=== PATIENT | male | born 1940 | race Caucasian/White ===

== ENCOUNTER 2016-09-27 11:18 | Emergency (ER) | payer MEDICARE, BC ==
[2014-01-30 09:40] VITALS: BMI 25.5
[~2016-09-27 11:18] MED LIST: ALEVE220 MG PO; BAYER CHEWABLE81 MG PO; FISH OIL 1,0001 CA1 PO; FORMULA E400 UNIT PO; HYDROCHLOROTHIA25 MG PO; MULTIPLE VITAMI1 TA1 PO; NORVASC10 MG PO; PACERONE200 MG PO; PLAVIX75 MG PO; PRAVACHOL40 MG PO; TOPROL XL25 MG PO
[2016-09-27 11:44] LABS: BASOPHILS 0.3 % (0-2); EOSINOPHILS 1.2 % (0-7); HEMATOCRIT 40.8 % (42.0-54.0); LYMPHOCYTES 36.5 % (15-50); MCH 30.3 pg (26.0-34.0); MCHC 34.3 g/dL (31.0-37.0); MCV 88.3 fL (80.0-100.0); MEAN PLATELET VOLUME 10.1 fL (7.4-10.4); MONOCYTES 14.3 % (2-11); NEUTROPHILS 47.7 % (40-80); PLATELET COUNT 151 10x3/uL (130-400); RBC 4.62 10x6/uL (4.20-6.10); RDW 13.3 % (11.5-14.5); WBC 5.8 10x3/uL (4.8-10.8)
[2016-09-27 11:57] LABS: ALBUMIN 4.2 g/dL (3.4-5.0); ALKALINE PHOSPHATASE 69 U/L (46-116); ALT (SGPT) 40 U/L (10-68); BILIRUBIN - TOTAL 0.62 mg/dL (0.2-1.3); CALC OSMOLALITY 274 mosm/kg (275-300); CALCIUM 8.8 mg/dL (8.5-10.1); CARBON DIOXIDE 30.5 mmol/L (21.0-32.0); CHLORIDE - SERUM 100 mmol/L (98-107); CREATININE - SERUM 1.2 mg/dL (0.6-1.3); GLUCOSE 125 mg/dL (74-106); POTASSIUM - SERUM 3.7 mmol/L (3.5-5.1); SODIUM 136 mmol/L (136-145); UREA NITROGEN 17 mg/dL (7-18); eGFR NON AFRICAN AMERICAN 62 mL/min (90-120)
[2016-09-27 12:16] LABS: CREATINE KINASE 220 UL (21-232)
[2016-09-27 12:18] LABS: TROPONIN-I < 0.017 ng/mL (0.000-0.060)
[2016-09-27 12:57] LABS: APPEARANCE CLEAR (CLEAR); BILIRUBIN NEGATIVE (NEGATIVE); COLOR YELLOW (YELLOW); GLUCOSE NEGATIVE (NEGATIVE); KETONE NEGATIVE (NEGATIVE); LEUKOCYTE ESTERASE NEGATIVE (NEGATIVE); NITRITE NEGATIVE (NEGATIVE); PROTEIN NEGATIVE (NEGATIVE); UROBILINOGEN NORMAL (NORMAL)
== END 2016-09-27 16:45 | disposition home or self-care (01) ==
LOC: D.ER 11:18
PROVIDERS: Emergency Medicine
DX: R55 Syncope and collapse (principal)

== ENCOUNTER 2017-03-03 13:43 | Emergency (ER) | payer MEDICARE, BC ==
[2014-01-30 09:40] VITALS: BMI 25.5
== END 2017-03-03 17:05 | disposition home or self-care (01) ==
LOC: D.ER 13:43
DX: S69.91XA Unspecified injury of right wrist, hand and finger(s), initial encounter (principal); X58.XXXA Exposure to other specified factors, initial encounter; Y93.9 Activity, unspecified; M79.641 Pain in right hand

== ENCOUNTER 2020-08-02 16:07 | Inpatient (IN) | payer MEDICARE, BC ==
[~2020-08-02] VITALS: Ht 182.9 cm; Wt 81.6 kg
[2020-08-02] MEDS ORDERED: ZOFRAN ODT4 MG/UDTAB PO (16:17)
[2020-08-02 16:22] VITALS: BP 115/67
[2020-08-02 16:46] LABS: BASOPHILS 0.3 % (0-2); EOSINOPHILS 0 % (0-7); HEMATOCRIT 36.2 % (42.0-54.0); HEMOGLOBIN 12.1 g/dL (13.5-17.5); LYMPHOCYTES 2.7 % (15-50); MCH 28.7 pg (26.0-34.0); MCHC 33.6 g/dL (31.0-37.0); MCV 85.5 fL (80.0-100.0); MONOCYTES 5.5 % (2-11); NEUTROPHILS 91.5 % (40-80); RBC 4.23 10x6/uL (4.20-6.10); WBC 11.2 10x3/uL (4.8-10.8)
[2020-08-02 16:52] LABS: ANION GAP 12.6 mmol/L (8-16); CALCIUM 8.1 mg/dL (8.5-10.1); CARBON DIOXIDE 23.8 mmol/L (21.0-32.0); CREATININE - SERUM 1.2 mg/dL (0.6-1.3); POTASSIUM - SERUM 3.4 mmol/L (3.5-5.1)
[2020-08-02 16:59] LABS: BILIRUBIN - TOTAL 0.58 mg/dL (0.2-1.3); PROTEIN - SERUM 7.5 g/dL (6.4-8.2)
[2020-08-02 17:13] LABS: PLATELET COUNT 193 10x3/uL (130-400)
[2020-08-02 17:25] VITALS: BP 123/66
[2020-08-02 17:42] LABS: BACTERIA FEW HPF (<MOD); BILIRUBIN NEGATIVE (NEGATIVE); KETONE NEGATIVE mg/dL (< 1+); NITRITE NEGATIVE (NEGATIVE); PH 6.5 (5.0-8.0); UROBILINOGEN NORMAL mg/dL (< 2); WHITE CELLS - URINE 9 HPF (0-1)
--- NOTE | 2020-08-02 19:00 | NUR ---
Report given to Ada ALEMAN. Family is at bedside with patient.
[2020-08-02 23:04] VITALS: BMI 24.4
[2020-08-02 23:53] VITALS: BP 151/71
[2020-08-03] MEDS ORDERED: TRIAMTERENE-HC1 EAC6 PO (00:12)
[2020-08-03] MEDS ORDERED: CYANOCOBAL1000 MCG/4 SC (00:15)
[2020-08-03 03:45] VITALS: BP 139/72
[2020-08-03 05:49] LABS: BASOPHILS 0.2 % (0-2); EOSINOPHILS 0 % (0-7); HEMATOCRIT 34.8 % (42.0-54.0); HEMOGLOBIN 11.7 g/dL (13.5-17.5); LYMPHOCYTES 3.9 % (15-50); MCHC 33.5 g/dL (31.0-37.0); MCV 86.4 fL (80.0-100.0); MEAN PLATELET VOLUME 7.6 fL (7.4-10.4); MONOCYTES 7.2 % (2-11); NEUTROPHILS 88.7 % (40-80); PLATELET COUNT 173 10x3/uL (130-400); RBC 4.03 10x6/uL (4.20-6.10); RDW 14.6 % (11.5-14.5); WBC 8.4 10x3/uL (4.8-10.8)
[2020-08-03 06:06] LABS: INR 1.22 (0.85-1.17); PROTIME 14.3 SECONDS (11.6-15.0)
[2020-08-03 06:07] LABS: APTT 30.3 SECONDS (22.8-39.4)
[2020-08-03 06:18] LABS: ALBUMIN 2.8 g/dL (3.4-5.0); ALKALINE PHOSPHATASE 50 U/L (30-120); ALT (SGPT) 77 U/L (10-68); BILIRUBIN - TOTAL 0.36 mg/dL (0.2-1.3); CALC OSMOLALITY 260 mosm/kg (275-300); CARBON DIOXIDE 23.7 mmol/L (21.0-32.0); CHLORIDE - SERUM 94 mmol/L (98-107); GLUCOSE 134 mg/dL (74-106); MAGNESIUM - SERUM 1.8 mg/dL (1.8-2.4); PHOSPHOROUS 2.3 mg/dL (2.5-4.9); PROTEIN - SERUM 7.1 g/dL (6.4-8.2); SODIUM 128 mmol/L (136-145); UREA NITROGEN 19 mg/dL (7-18); eGFR NON AFRICAN AMERICAN 76 mL/min (90-120)
[2020-08-03 07:20] LABS: POTASSIUM - SERUM 2.9 mmol/L (3.5-5.1)
--- NOTE | 2020-08-03 07:52 | NUR ---
RECIEVED BEDSIDE REPORT. BED LOW POSITION, CALL LIGHT IN REACH. DENIES NEEDS AT THIS TIME. FAMILY AT BEDSIDE. FREE FROM SIGNS OF DISTRESS. WILL CONTINUE TO MONITOR.
[2020-08-03 08:37] VITALS: BP 141/73
[2020-08-03 12:46] VITALS: BP 141/78
[2020-08-03 13:20] VITALS: Ht 182.9 cm; Wt 81.6 kg
[2020-08-03 16:49] VITALS: BP 146/69
--- NOTE | 2020-08-03 19:46 | NUR ---
PT SITTING UP IN BED WITHOUT DISTRESS, AOX4. FAMILY AT BEDSIDE. DENIES NEEDS AT THIS TIME. CL IN REACH
[2020-08-03 20:59] VITALS: BP 137/76
[2020-08-03 23:55] VITALS: BP 141/58
[2020-08-04 03:51] VITALS: BP 104/59
[2020-08-04 06:30] LABS: ALBUMIN 2.4 g/dL (3.4-5.0); ALKALINE PHOSPHATASE 35 U/L (30-120); ALT (SGPT) 72 U/L (10-68); BILIRUBIN - TOTAL 0.31 mg/dL (0.2-1.3); CALC OSMOLALITY 265 mosm/kg (275-300); CALCIUM 7.6 mg/dL (8.5-10.1); CARBON DIOXIDE 24.5 mmol/L (21.0-32.0); CHLORIDE - SERUM 101 mmol/L (98-107); CREATININE - SERUM 0.8 mg/dL (0.6-1.3); GLUCOSE 89 mg/dL (74-106); MAGNESIUM - SERUM 2.2 mg/dL (1.8-2.4); PHOSPHOROUS 1.9 mg/dL (2.5-4.9); PROTEIN - SERUM 6.2 g/dL (6.4-8.2); SODIUM 133 mmol/L (136-145); UREA NITROGEN 15 mg/dL (7-18); eGFR NON AFRICAN AMERICAN > 90 mL/min (90-120)
[2020-08-04 06:35] LABS: BASOPHILS 0.3 % (0-2); EOSINOPHILS 0 % (0-7); HEMATOCRIT 32.9 % (42.0-54.0); HEMOGLOBIN 11.3 g/dL (13.5-17.5); LYMPHOCYTES 9.2 % (15-50); MCH 29.3 pg (26.0-34.0); MCHC 34.2 g/dL (31.0-37.0); MCV 85.6 fL (80.0-100.0); MEAN PLATELET VOLUME 7.7 fL (7.4-10.4); MONOCYTES 13.3 % (2-11); NEUTROPHILS 77.2 % (40-80); PLATELET COUNT 155 10x3/uL (130-400); RBC 3.85 10x6/uL (4.20-6.10); RDW 14.5 % (11.5-14.5)
[2020-08-04 06:51] LABS: WBC 5.2 10x3/uL (4.8-10.8)
--- NOTE | 2020-08-04 07:48 | NUR ---
RECIEVED BEDSIDE REPORT. BED LOW POSITION, CALL LIGHT IN REACH. FREE FROM SIGNS OF DISTRESS. DENIES NEEDS. WILL CONTINUE TO MONITOR.
[2020-08-04 09:01] VITALS: BP 137/75
[2020-08-04 17:15] VITALS: BP 155/80
[2020-08-04 20:00] VITALS: BP 130/71
--- NOTE | 2020-08-04 20:00 | NUR ---
PT SITTING UP IN BED WITHOUT DISTRESS, AOX4. GRANDSON AT BEDSIDE. DENIES PAIN OR NEEDS AT THIS TIME. CL IN REACH
[2020-08-05] VITALS: BP 144/77
[2020-08-05 04:00] VITALS: BP 146/78
--- NOTE | 2020-08-05 05:00 | NUR ---
PT STATES HE IS ITCHY AFTER LAST NORCO, REQUESTING SOMETHING FOR ITCHING. LAB CALLED BLOOD CULTURE RESULTS GRAM POSITIVE COCCI. PAGED CHRIS YAO APN.
[2020-08-05 05:24] LABS: BASOPHILS 0.4 % (0-2); EOSINOPHILS 0.4 % (0-7); HEMATOCRIT 33.7 % (42.0-54.0); HEMOGLOBIN 11.5 g/dL (13.5-17.5); MCV 85.3 fL (80.0-100.0); MEAN PLATELET VOLUME 7.4 fL (7.4-10.4); MONOCYTES 15.2 % (2-11); PLATELET COUNT 174 10x3/uL (130-400); RBC 3.96 10x6/uL (4.20-6.10); RDW 14.5 % (11.5-14.5); WBC 4.9 10x3/uL (4.8-10.8)
[2020-08-05 06:33] LABS: ALBUMIN 2.5 g/dL (3.4-5.0); ALKALINE PHOSPHATASE 42 U/L (30-120); ALT (SGPT) 83 U/L (10-68); BILIRUBIN - TOTAL 0.34 mg/dL (0.2-1.3); CALC OSMOLALITY 268 mosm/kg (275-300); CALCIUM 7.4 mg/dL (8.5-10.1); CARBON DIOXIDE 22.5 mmol/L (21.0-32.0); CHLORIDE - SERUM 103 mmol/L (98-107); CREATININE - SERUM 0.9 mg/dL (0.6-1.3); GLUCOSE 92 mg/dL (74-106); MAGNESIUM - SERUM 1.9 mg/dL (1.8-2.4); PHOSPHOROUS 1.8 mg/dL (2.5-4.9); POTASSIUM - SERUM 3.2 mmol/L (3.5-5.1); PROTEIN - SERUM 5.9 g/dL (6.4-8.2); SODIUM 135 mmol/L (136-145); eGFR NON AFRICAN AMERICAN 86 mL/min (90-120)
[2020-08-05 06:42] LABS: UREA NITROGEN 11 mg/dL (7-18)
--- NOTE | 2020-08-05 07:47 | NUR ---
ALERT AND ORIENTED. ASSESSMENT COMPLETE. SON AT BEDSIDE. BED LOW. CALL OSMAN AND PERSONAL ITEMS IN REACH. WILL CONTINUE TO MONITOR.
[2020-08-05 09:04] VITALS: BP 156/86
--- NOTE | 2020-08-05 10:00 | NUR ---
SITTING UP ON SIDE OF BED. DENIES NEEDS. WILL CONTINUE TO MONITOR.
--- NOTE | 2020-08-05 12:31 | NUR ---
SITTING UP ON SIDE OF BED EATING LUNCH. DENIES NEEDS. WILL CONTINUE TO MONITOR.
[2020-08-05 12:45] VITALS: BP 161/92
--- NOTE | 2020-08-05 13:39 | NUR ---
TELE DC PER PATIENT REQUEST. ORDER GIVEN TO DC TELE BY YOHANNES PLAZA.
[2020-08-05 20:00] VITALS: BP 152/84
--- NOTE | 2020-08-05 20:00 | NUR ---
PT SITTING UP ON SIDE OF BED AOX4. TALKING WITH SON AT BEDSIDE. DENIES PAIN OR NEEDS AT THIS TIME. CL IN REACH
--- NOTE | 2020-08-06 08:00 | NUR ---
ALERT AND ORIENTED. ASSESSMENT COMPLETE. DENIES NEEDS. WILL CONTINUE TO MONITOR.
[2020-08-06 08:58] VITALS: BP 152/82
[2020-08-06 09:18] LABS: BASOPHILS 0.3 % (0-2); EOSINOPHILS 1.5 % (0-7); HEMATOCRIT 34.9 % (42.0-54.0); HEMOGLOBIN 11.9 g/dL (13.5-17.5); LYMPHOCYTES 9.8 % (15-50); MCH 28.7 pg (26.0-34.0); MCHC 34.1 g/dL (31.0-37.0); MEAN PLATELET VOLUME 7.7 fL (7.4-10.4); MONOCYTES 15.4 % (2-11); PLATELET COUNT 198 10x3/uL (130-400); RBC 4.16 10x6/uL (4.20-6.10); RDW 15.2 % (11.5-14.5); WBC 4.8 10x3/uL (4.8-10.8)
[2020-08-06 09:25] LABS: ALBUMIN 2.5 g/dL (3.4-5.0); ALKALINE PHOSPHATASE 47 U/L (30-120); ALT (SGPT) 71 U/L (10-68); BILIRUBIN - TOTAL 0.38 mg/dL (0.2-1.3); CALCIUM 7.6 mg/dL (8.5-10.1); CARBON DIOXIDE 24.5 mmol/L (21.0-32.0); CHLORIDE - SERUM 103 mmol/L (98-107); CREATININE - SERUM 0.7 mg/dL (0.6-1.3); GLUCOSE 99 mg/dL (74-106); MAGNESIUM - SERUM 1.9 mg/dL (1.8-2.4); PHOSPHOROUS 1.8 mg/dL (2.5-4.9); POTASSIUM - SERUM 3.1 mmol/L (3.5-5.1); PROTEIN - SERUM 6.4 g/dL (6.4-8.2); SODIUM 135 mmol/L (136-145); eGFR NON AFRICAN AMERICAN > 90 mL/min (90-120)
[2020-08-06 09:26] LABS: CALC OSMOLALITY 267 mosm/kg (275-300); UREA NITROGEN 8 mg/dL (7-18)
--- NOTE | 2020-08-06 09:39 | NUR ---
PER YOHANNES PLAZA, ADD PHOS TO POTASSIUM REDRAWS AFTER TREATING PER PROTOCOL.
--- NOTE | 2020-08-06 09:39 | NUR ---
SPOKE WITH PHARMACY FOR 15MM BAG PHOS.
--- NOTE | 2020-08-06 12:46 | NUR ---
REQUESTING DIFFERENT LUNCH. NEW TRAY ORDERED. DENIES FURTHER NEEDS. WILL CONTINUE TO MONITOR.
[2020-08-06 13:38] VITALS: BP 127/82
--- NOTE | 2020-08-06 14:03 | NUR ---
RESTING IN BED. DENIES NEEDS. SON AT BEDSIDE. WILL CONTINUE TO MONITOR.
--- NOTE | 2020-08-06 16:56 | NUR ---
RESTING IN BED. SON AT BEDSIDE. CALL OSMAN IN REACH.
[2020-08-06 17:47] VITALS: BP 153/78
--- NOTE | 2020-08-06 18:34 | MORECARE ---
CASE MANAGEMENT DISCHARGE SUMMARY PATIENT: ALEIDA BRADLEY UNIT: [id number] ADM DATE: 08/03/20 AGE: 80 : 38 SEX: M ROOM/BED: D.2203 AUTHOR: NADIRA,DOC PHYSICIAN: REFERRING PHYSICIAN: ALEX ROUSE MD DATE OF SERVICE: 08/06/20 Case Management Discharge Planning Summary COMMENTS ENTERED DATE: 08/06/20 18:27 CT COMMENT TYPE: Discharge Planning REVIEWER: Gigi Wood CM met with patient to complete DC plan and to evaluate needs. Patient lives independently alone with strong support. Patient stated that his person to notify is his granddaughter, Ophelia Maher, . Patient stated that his home is safe and has electricity and running water. Patient stated that the home has a ramp to enter and he is able to manage entry into his home and within his home without difficulty. Patient stated that he has no problems paying for medications and he fills his medications at [facility] in [place], [place]. Patient stated that his primary care physician is Dr. Santiago. At discharge, the patient plans to return home and feels this is a safe discharge. CM discussed availability of home health, rehab services, and medical equipment. Patient declined SNF, IPR, and DME but would like home health services through [facility]. Patient stated that [place] arranged home intensive care anaesthetist services through [facility] and would like to do the same. RAJAT signed and placed in chart. Patient voiced no other needs at this time and is satisfied with DC plan. DC IMM delivered, explained, signed by the patient, and placed in chart. Signed form also left with the patient. CM will continue to follow and will assist as needed with dc plans/needs. DCP REVIEW SUMMARY ANTICIPATED D/C DATE: EXPECTED LOS : CASE STATUS: DCP Initiated INITIAL REVIEW: 08/02/2020 INITIAL REVIEWER: Gigi Wood FINAL DISCHARGE DISPOSITION: : FINAL REVIEWER: FINAL REVIEW DATE: DCP Focus Questions & Answers DCP Evaluation QUESTION: ANSWER Patient and/or caregiver agree upon recommended discharge plan? : Yes Family / Caregiver's ability to cope with chronic illness: : a. Adequate (ability to meet patient's medical needs, ensures patient attends medical appts.) Patient's current cognitive status: : *Oriented to person, place, situation, time and present Patient's ability to cope with chronic illness : d. No chronic illness Patient gives permission to discuss discharge plans with: (name, relationship and number) : Ophelia braden, Does the patient have the ability to pay for or attain post discharge needs / services? : Yes Functional screen assessment: : Basic needs can adequately be met by self Family / Caregiver's ability to cope with chronic illness: : a. Adequate (ability to meet patient's medical needs, ensures patient attends medical appts.) Physical Status: : Independent with ADL's Equipment needed for post hospitalization: : None Is there a likelihood that the patient will require additional services to return to the preadmission environment? : Yes Living Arrangements: : Home Alone with Support Patient with capacity for self-care or can be cared for in same environment as prior to hospitalization? : Yes Baseline cognitive status: : *Oriented to person, place, situation, time and present Physical environment modification needed / anticipated for discharge: : No Medication Management: : Patient states can read and understand medication labels Medication Management: : Patient states can afford medications Pharmacy name(s): : [facility] in [place], [place]. Does Patient have transportation to get home and to follow-up medical appointments when discharged from the hospital? : Yes Would patient like to participate in any Care Coordination programs (if applicable): : Not applicable Does the patient have electricity at home? : Yes Does the patient have running water in their house? : Yes Equipment in use: : None Mental health screen: : No mental health history DCP Re-evaluation QUESTION: ANSWER Would patient like to participate in any Care Coordination programs (if applicable): : Not applicable PATIENT: ALEIDA BRADLEY ENCOUNTER: [id number] MEDICAL RECORD#: [id number] ADMISSION DATE: 08/03/2020 DISCHARGE DATE: ATTENDING MD: EDMUNDO: AGE: 80 MARITAL STATUS: M DC PLAN ID: [id number] FACILITY: [facility] PRINTED ON: 08/06/20 18:34 CT All edits/amendments must be made on the electronic document DICTATION DATE: 08/06/201833 DRYING OVEN ATTENDANT: LORENZO 08/06/201833 RPT#: [id number] DC DATE: STATUS: ADM IN [facility] [address] [place] [address] END OF REPORT
--- NOTE | 2020-08-06 18:45 | NUR ---
PATIENT SLEEPING. SON AT BEDSIDE. CALL OSMAN IN REACH.
--- NOTE | 2020-08-06 19:00 | NUR ---
BEDSIDE REPORT RECEIVED AND CARE OF PT ASSUMED. PT LYING IN LOW WARREN'S POSITION VISITING WITH SON. IV TO RIGHT WRIST PATENT WITH NS W/ 2O KCL INFUSING AT 125 ML/HR. WILL MONITOR FOR NEEDS.
--- NOTE | 2020-08-06 20:46 | NUR ---
HS MEDICATIONS GIVEN. WILL CONTINUE TO MONITOR FOR NEEDS. SON IS AT BEDSIDE.
--- NOTE | 2020-08-07 02:39 | NUR ---
GAVE TYLEOL 500 MG PO PER PRN ORDER, PER REQUEST FOR ACHING HEADACHE AT LEVEL 5/10. WILL MONITOR FOR EFFECTIVENESS.
[2020-08-07 05:42] LABS: BASOPHILS 0.4 % (0-2); EOSINOPHILS 2.1 % (0-7); HEMATOCRIT 32.6 % (42.0-54.0); HEMOGLOBIN 11.1 g/dL (13.5-17.5); LYMPHOCYTES 11.9 % (15-50); MCH 28.5 pg (26.0-34.0); MCV 83.9 fL (80.0-100.0); MEAN PLATELET VOLUME 7.4 fL (7.4-10.4); MONOCYTES 16.1 % (2-11); NEUTROPHILS 69.5 % (40-80); PLATELET COUNT 198 10x3/uL (130-400); RBC 3.89 10x6/uL (4.20-6.10); WBC 3.9 10x3/uL (4.8-10.8)
[2020-08-07 05:50] LABS: ALBUMIN 2.3 g/dL (3.4-5.0); ALKALINE PHOSPHATASE 52 U/L (30-120); ALT (SGPT) 67 U/L (10-68); BILIRUBIN - TOTAL 0.39 mg/dL (0.2-1.3); CALC OSMOLALITY 268 mosm/kg (275-300); CALCIUM 7.5 mg/dL (8.5-10.1); CARBON DIOXIDE 23.3 mmol/L (21.0-32.0); CHLORIDE - SERUM 103 mmol/L (98-107); CREATININE - SERUM 0.6 mg/dL (0.6-1.3); GLUCOSE 108 mg/dL (74-106); MAGNESIUM - SERUM 1.7 mg/dL (1.8-2.4); PHOSPHOROUS 2.4 mg/dL (2.5-4.9); PROTEIN - SERUM 5.9 g/dL (6.4-8.2); SODIUM 135 mmol/L (136-145); UREA NITROGEN 7 mg/dL (7-18); eGFR NON AFRICAN AMERICAN > 90 mL/min (90-120)
[2020-08-07 05:51] LABS: POTASSIUM - SERUM 3.8 mmol/L (3.5-5.1)
[2020-08-07 08:00] VITALS: BP 139/88
[2020-08-07] MEDS ORDERED: FLORAJEN DIGES1 EACH PO (10:57)
[2020-08-07] MEDS ORDERED: LEVOFLOXACIN500 MG PO (10:57)
[2020-08-07 12:29] VITALS: BP 173/94
[2020-08-07 16:15] VITALS: BP 157/84
--- NOTE | 2020-08-07 19:00 | NUR ---
BEDSIDE REPORT RECEIVED AND CARE OF PT ASSUMED. PT LYING ON RIGHT SIDE WITH EYES CLOSED. SON IS AT BEDSIDE.
[2020-08-07 19:08] LABS: OVA + PARASITE EXAM Final report (())
--- NOTE | 2020-08-07 20:53 | NUR ---
HS MEDICATIONS GIVEN. WILL CONTINUE TO MONITOR FOR NEEDS.
--- NOTE | 2020-08-08 07:23 | NUR ---
RECIEVED BEDSIDE REPORT. BED LOW POSITION, CALL LIGHT IN REACH. FREE FROM SIGNS OF DISTRESS. DENIES NEEDS AT THIS TIME. WILL CONTINUE TO MONITOR.
[2020-08-08 08:44] LABS: ALKALINE PHOSPHATASE 64 U/L (30-120); ALT (SGPT) 81 U/L (10-68); BILIRUBIN - TOTAL 0.55 mg/dL (0.2-1.3); CALC OSMOLALITY 265 mosm/kg (275-300); CARBON DIOXIDE 25.2 mmol/L (21.0-32.0); CHLORIDE - SERUM 102 mmol/L (98-107); CREATININE - SERUM 0.7 mg/dL (0.6-1.3); GLUCOSE 99 mg/dL (74-106); MAGNESIUM - SERUM 1.8 mg/dL (1.8-2.4); PHOSPHOROUS 2.3 mg/dL (2.5-4.9); PROTEIN - SERUM 7.2 g/dL (6.4-8.2); SODIUM 134 mmol/L (136-145); UREA NITROGEN 6 mg/dL (7-18); eGFR NON AFRICAN AMERICAN > 90 mL/min (90-120)
[2020-08-08 08:46] LABS: ALBUMIN 2.9 g/dL (3.4-5.0); POTASSIUM - SERUM 4.4 mmol/L (3.5-5.1)
[2020-08-08 10:27] VITALS: BP 162/91
[2020-08-08] MEDS ORDERED: LEVOFLOXACIN500 MG PO (13:30)
[2020-08-08] MEDS ORDERED: FLAGYL500 MG PO (13:30)
--- NOTE | 2020-08-08 15:10 | NUR ---
DISCHARGE PAPERS COMPLETE. IV CATH REMOVED, CATH TIP INTACT. DENIES FURTHER QUESTIONS. BELONGINGS GATHERED. LEFT UNIT VIA WHEELCHAIR TO HOME AT THIS TIME.
--- NOTE | 2020-08-09 08:27 | MORECARE ---
CASE MANAGEMENT DISCHARGE SUMMARY PATIENT: ALEIDA BRADLEY UNIT: [id number] ADM DATE: 08/03/20 AGE: 80 : 38 SEX: M ROOM/BED: D.2203 AUTHOR: NADIRA,DOC PHYSICIAN: REFERRING PHYSICIAN: ALEX ROUSE MD DATE OF SERVICE: 08/09/20 Case Management Discharge Planning Summary COMMENTS ENTERED DATE: 08/06/20 18:27 CT COMMENT TYPE: Discharge Planning REVIEWER: Gigi Wood CM met with patient to complete DC plan and to evaluate needs. Patient lives independently alone with strong support. Patient stated that his person to notify is his granddaughter, Ophelia Maher, . Patient stated that his home is safe and has electricity and running water. Patient stated that the home has a ramp to enter and he is able to manage entry into his home and within his home without difficulty. Patient stated that he has no problems paying for medications and he fills his medications at [facility] in [place], [place]. Patient stated that his primary care physician is Dr. Santiago. At discharge, the patient plans to return home and feels this is a safe discharge. CM discussed availability of home health, rehab services, and medical equipment. Patient declined SNF, IPR, and DME but would like home health services through [facility] [address]. Patient stated that [place] arranged home director career services through [facility] and would like to do the same. RAJAT signed and placed in chart. Patient voiced no other needs at this time and is satisfied with DC plan. DC IMM delivered, explained, signed by the patient, and placed in chart. Signed form also left with the patient. CM will continue to follow and will assist as needed with dc plans/needs. DCP REVIEW SUMMARY ANTICIPATED D/C DATE: EXPECTED LOS : CASE STATUS: DCP Initiated INITIAL REVIEW: 08/02/2020 INITIAL REVIEWER: Gigi Wood FINAL DISCHARGE DISPOSITION: : FINAL REVIEWER: FINAL REVIEW DATE: DCP Focus Questions & Answers DCP Evaluation QUESTION: ANSWER Patient and/or caregiver agree upon recommended discharge plan? : Yes Family / Caregiver's ability to cope with chronic illness: : a. Adequate (ability to meet patient's medical needs, ensures patient attends medical appts.) Patient's current cognitive status: : *Oriented to person, place, situation, time and present Patient's ability to cope with chronic illness : d. No chronic illness Patient gives permission to discuss discharge plans with: (name, relationship and number) : litzyughterOphelia, Does the patient have the ability to pay for or attain post discharge needs / services? : Yes Functional screen assessment: : Basic needs can adequately be met by self Family / Caregiver's ability to cope with chronic illness: : a. Adequate (ability to meet patient's medical needs, ensures patient attends medical appts.) Physical Status: : Independent with ADL's Equipment needed for post hospitalization: : None Is there a likelihood that the patient will require additional services to return to the preadmission environment? : Yes Living Arrangements: : Home Alone with Support Patient with capacity for self-care or can be cared for in same environment as prior to hospitalization? : Yes Baseline cognitive status: : *Oriented to person, place, situation, time and present Physical environment modification needed / anticipated for discharge: : No Medication Management: : Patient states can read and understand medication labels Medication Management: : Patient states can afford medications Pharmacy name(s): : [facility] in [place], [place]. Does Patient have transportation to get home and to follow-up medical appointments when discharged from the hospital? : Yes Would patient like to participate in any Care Coordination programs (if applicable): : Not applicable Does the patient have electricity at home? : Yes Does the patient have running water in their house? : Yes Equipment in use: : None Mental health screen: : No mental health history DCP Re-evaluation QUESTION: ANSWER Would patient like to participate in any Care Coordination programs (if applicable): : Not applicable PROVIDER NETWORKING REVIEW DATE: 08/08/2020 SERVICE TYPE: Home Health Care REVIEWER: Luz Elena Amaya PATIENT: ALEIDA BRADLEY ENCOUNTER: [id number] MEDICAL RECORD#: [id number] ADMISSION DATE: 08/03/2020 DISCHARGE DATE: 08/08/2020 ATTENDING MD: EDMUNDO: 1940-Dec AGE: 80 MARITAL STATUS: M DC PLAN ID: [id number] FACILITY: [facility] PRINTED ON: 08/09/20 8:27 CT All edits/amendments must be made on the electronic document DICTATION DATE: 08/09/20826 DRONE OPERATOR: LORENZO 08/09/20 0827 RPT#: [id number] DC DATE:08/08/20 STATUS: DIS IN [facility] [address] [place] [address] END OF REPORT
--- NOTE | 2020-08-09 14:32 | MORECARE ---
CASE MANAGEMENT DISCHARGE SUMMARY PATIENT: ALEIDA BRADLEY UNIT: [id number] ADM DATE: 08/03/20 AGE: 80 : 38 SEX: M ROOM/BED: D.2203 AUTHOR: NADIRA,DOC PHYSICIAN: REFERRING PHYSICIAN: ALEX ROUSE MD DATE OF SERVICE: 08/09/20 Case Management Discharge Planning Summary COMMENTS ENTERED DATE: 08/06/20 18:27 CT COMMENT TYPE: Discharge Planning REVIEWER: Gigi Wood CM met with patient to complete DC plan and to evaluate needs. Patient lives independently alone with strong support. Patient stated that his person to notify is his granddaughter, Ophelia Maher, . Patient stated that his home is safe and has electricity and running water. Patient stated that the home has a ramp to enter and he is able to manage entry into his home and within his home without difficulty. Patient stated that he has no problems paying for medications and he fills his medications at [facility] in [place], [place]. Patient stated that his primary care physician is Dr. Santiago. At discharge, the patient plans to return home and feels this is a safe discharge. CM discussed availability of home health, rehab services, and medical equipment. Patient declined SNF, IPR, and DME but would like home health services through [facility]. Patient stated that [place] arranged home certified caregiver services through [facility] and would like to do the same. RAJAT signed and placed in chart. Patient voiced no other needs at this time and is satisfied with DC plan. DC IMM delivered, explained, signed by the patient, and placed in chart. Signed form also left with the patient. CM will continue to follow and will assist as needed with dc plans/needs. DCP REVIEW SUMMARY ANTICIPATED D/C DATE: EXPECTED LOS : CASE STATUS: DCP Initiated INITIAL REVIEW: 08/02/2020 INITIAL REVIEWER: Gigi Wood FINAL DISCHARGE DISPOSITION: : FINAL REVIEWER: FINAL REVIEW DATE: DCP Focus Questions & Answers DCP Evaluation QUESTION: ANSWER Patient and/or caregiver agree upon recommended discharge plan? : Yes Family / Caregiver's ability to cope with chronic illness: : a. Adequate (ability to meet patient's medical needs, ensures patient attends medical appts.) Patient's current cognitive status: : *Oriented to person, place, situation, time and present Patient's ability to cope with chronic illness : d. No chronic illness Patient gives permission to discuss discharge plans with: (name, relationship and number) : litzyughterOphelia, Does the patient have the ability to pay for or attain post discharge needs / services? : Yes Functional screen assessment: : Basic needs can adequately be met by self Family / Caregiver's ability to cope with chronic illness: : a. Adequate (ability to meet patient's medical needs, ensures patient attends medical appts.) Physical Status: : Independent with ADL's Equipment needed for post hospitalization: : None Is there a likelihood that the patient will require additional services to return to the preadmission environment? : Yes Living Arrangements: : Home Alone with Support Patient with capacity for self-care or can be cared for in same environment as prior to hospitalization? : Yes Baseline cognitive status: : *Oriented to person, place, situation, time and present Physical environment modification needed / anticipated for discharge: : No Medication Management: : Patient states can read and understand medication labels Medication Management: : Patient states can afford medications Pharmacy name(s): : [facility] in [place], [place]. Does Patient have transportation to get home and to follow-up medical appointments when discharged from the hospital? : Yes Would patient like to participate in any Care Coordination programs (if applicable): : Not applicable Does the patient have electricity at home? : Yes Does the patient have running water in their house? : Yes Equipment in use: : None Mental health screen: : No mental health history DCP Re-evaluation QUESTION: ANSWER Would patient like to participate in any Care Coordination programs (if applicable): : Not applicable PROVIDER NETWORKING REVIEW DATE: 08/08/2020 SERVICE TYPE: Home Health Care REVIEWER: Luz Elena Amaya PATIENT: ALEIDA BRADLEY ENCOUNTER: [id number] MEDICAL RECORD#: [id number] ADMISSION DATE: 08/03/2020 DISCHARGE DATE: 08/08/2020 ATTENDING MD: EDMUNDO: 1940-Dec AGE: 80 MARITAL STATUS: M DC PLAN ID: [id number] FACILITY: [facility] PRINTED ON: 08/09/20 14:32 CT All edits/amendments must be made on the electronic document DICTATION DATE: 08/09/20 143 AIR EXPORT AGENT: LORENZO 08/09/20 1431 RPT#: [id number] DC DATE:08/08/20 STATUS: DIS IN [facility] [address] [place] [address] END OF REPORT
== END 2020-08-08 15:12 | disposition home health service (06) | DRG 868 ==
LOC: D.ER 16:07 → D.MS 22:02 → OBSVTIME 22:03 → D.MS 08-03 20:09
PROVIDERS: Family Medicine; ADMIT Family Medicine; ATTEND Family Medicine
DX: A02.9 Salmonella infection, unspecified (principal); E87.1 Hypo-osmolality and hyponatremia; A09 Infectious gastroenteritis and colitis, unspecified; E87.6 Hypokalemia; D64.9 Anemia, unspecified; E78.5 Hyperlipidemia, unspecified; J44.9 Chronic obstructive pulmonary disease, unspecified; I25.10 Atherosclerotic heart disease of native coronary artery without angina pectoris; K76.0 Fatty (change of) liver, not elsewhere classified; I10 Essential (primary) hypertension; Z95.5 Presence of coronary angioplasty implant and graft; Z79.02 Long term (current) use of antithrombotics/antiplatelets